=== PATIENT | male | born 1980 | race Caucasian/White ===

== ENCOUNTER 2017-08-18 09:45 | Emergency (ER) | payer BC, OTHER ==
[~2017-08-18] VITALS: Ht 182.9 cm; Wt 70.3 kg
--- NOTE | ~2017-08-18 | EKG ---
[place] [place] [address] [facility] [place] [address] ELECTROCARDIOGRAM REPORT Name: CHRISTINA ARELLANO Room #: [facility] [id number] Admission: 08/18/17 Attend Phys: Discharge: 08/18/17 Date of : 78 Report #: [id number] THIS REPORT FOR: //name// [facility] ED Test Date: 2017-08-18 Test Time: 10:20:20 Pat Name: CHRISTINA ARELLANO Department: Room: Gender: M President [employer] Founder: ANGELICAEN : 1980 Requested By: Jarad Good Order Number: [id number] MD: Mark Contreras Measurements Intervals [place] Rate: 50 P: 18 AL: 189 QRS: 58 QRSD: 95 T: 35 QT: 466 QTc: 425 Interpretive Statements Sinus bradycardia Otherwise normal tracing No previous ECG available for comparison Electronically Signed On 08-18-2017 16:01:40 ELEVATOR DISPATCHER by Mark Contreras [email or web address] <ELECTRONICALLY SIGNED> By: Mark Contreras MD, [facility] 08/18/17 1601 1020 1020 Mark Contreras MD, FACC /EPI
[2017-08-18 10:17] LABS: ABSOLUTE NEUTROPHILS 2.3 thou/uL (1.4-8.2); BASOPHILS 1.3 % (0.0-2.0); EOSINOPHILS 1.3 % (0.0-3.0); HEMATOCRIT 41.6 % (42.0-52.0); HEMOGLOBIN 14.2 gm/dL (14.0-18.0); LYMPHOCYTES 33.9 % (24.0-44.0); MCH 31.9 pg (26.0-34.0); MCHC 34.2 g/dL (28.0-37.0); MCV 93.2 fL (80.0-100.0); MONOCYTES 11.3 % (1.0-8.0); PLATELET COUNT 168 thou/uL (150-400); POLYS 52.2 % (36.0-66.0); RBC 4.46 mil/uL (4.50-6.00); RDW 12.6 % (10.5-14.5); WBC 4.3 thou/uL (4.0-11.0)
[2017-08-18 10:24] LABS: URINE BILIRUBIN NEGATIVE (Negative); URINE BLOOD NEGATIVE (Negative); URINE CLARITY CLEAR; URINE COLOR YELLOW; URINE GLUCOSE-RANDOM* NEGATIVE (Negative); URINE KETONES NEGATIVE (Negative); URINE LEUKOCYTES-REFLEX NEGATIVE (Negative); URINE NITRITE-REFLEX NEGATIVE (Negative); URINE PROTEIN (DIPSTICK) NEGATIVE (Negative); URINE SPECIFIC GRAVITY 1.015 (1.005-1.035); URINE UROBILINOGEN 0.2 E.U./dl (0.2-1.0)
[2017-08-18 10:25] LABS: ANION GAP 9 mmol/L (7-16); BUN 23 mg/dL (7-18); CALCIUM 8.7 mg/dL (8.5-10.1); CHLORIDE 105 mmol/L (98-107); CO2 26 mmol/L (21-32); GLUCOSE 93 mg/dL (74-106); POTASSIUM 4.8 mmol/L (3.5-5.1); SODIUM 140 mmol/L (136-145)
[2017-08-18 10:33] LABS: ALBUMIN 3.9 g/dL (3.4-5.0); LIPASE 118 U/L (73-393); SGOT 37 U/L (15-37); SGPT 38 U/L (30-65); TOTAL BILIRUBIN 0.4 mg/dL (<0.1-1.0); TOTAL PROTEIN 7.3 g/dL (6.4-8.2); TROPONIN-I < 0.04 ng/mL (<0.06)
[2017-08-18] MEDS ORDERED: PEPCID20 MG PO (11:05)
[2017-08-18] MEDS ORDERED: LEVSIN0.125 MG PO (11:05)
== END 2017-08-18 11:33 | disposition home or self-care (01) ==
LOC: ER 09:45
PROVIDERS: Emergency Medicine
DX: R10.84 Generalized abdominal pain (principal); R19.7 Diarrhea, unspecified